=== PATIENT | female | born 1980 | race Caucasian/White ===

== ENCOUNTER 2023-01-29 08:52 | Emergency (ER) | payer MEDICAID, SELFPAY ==
[2023-01-29 08:54] VITALS: BP 162/87; PULSE 100; RESP 16; TEMP 37.2; O2SAT 99
--- NOTE | 2023-01-29 09:16 | DI.RAD_ITS ---
Exam(s) XR KNEE LT 3V AP,LAT,MILADY EXAM: XR KNEE LT 3V AP,LAT,MILADY CLINICAL HISTORY: Pain and swelling. TECHNIQUE: 2D digital imaging was performed. COMPARISON: No exams were available for comparison FINDINGS: 3 views No evidence of acute fracture nor joint space narrowing. However, there is a joint effusion signifyi ng internal derangement. Bone density normal. No osseous lesions. IMPRESSION: No acute osseous findings but there is a joint effusion signifying internal derangement of the knee. DATA REPOSITORY: RADIATION DOSE DELIVERED:
--- NOTE | 2023-01-29 09:18 | ED.GENADUL_ITS ---
Discharge Plan Disposition Patient Disposition: Home Discharge Details Clinical Impression: Injury of knee, left, Effusion of knee joint, left Primary Care Provider: None,None ED Provider: Humza Grant Home Meds and New Rx's Prescriptions: New diclofenac potassium 50 mg tablet 50 mg PO TID PRN (Reason: pain) Qty: 15 0RF Continued medroxyprogesterone [Depo-Provera] 150 mg/mL syringe 150 mg IM [id number] medroxyprogesterone [Depo-Provera] 150 mg/mL suspension 150 mg IM [id number] Held ibuprofen 200 mg tablet 200 mg PO Q6H PRN Hold Instructions: Until diclofenac is completed Discharge Instructions Instructions: Swollen Knee Joint (ED) Additional Instructions: You may continue to take acetaminophen along with the prescribed diclofenac. If you have any new or significant worsening of symptoms return the emergency department for reassessment otherwise continue follow-up with orthopedist. Please continue to wear the Fran wrap as this will help with your swelling and you may perform weightbearing as tolerated but crutch use over the next couple days may be beneficial. Referrals: [facility] [Provider Group] (Continue with your already prescribed appointment but call the office tomorrow to see if they may have any cancellations or you can be seen sooner.) Medical Decision Making Patient presenting to the emergency department for chief complaint of left knee injury. Patient reports that 3 weeks ago she was getting out of bed and when she turned she felt a pop and a sharp pain in her knee. Patient denies any other injury or trauma. Patient states that she has been using [id number] NSAIDs, hinged knee brace, and crutches but pain is not improving. She does state moderate swelling of the left knee but denies any fever chills, rash, redness or warmth. Physical exam shows moderate joint effusion to left knee with diffuse tenderness, no warmth or redness noted to the joint, patient can actively extend and flex the knee with patient reporting more pain with flexion. Ligamentous exam of the knee is completely unremarkable with no tenderness or laxity noted. Patient does states she was seen at an urgent care and they suspected meniscus type injury and she does have an upcoming appointment with orthopedist. Given that no radiological imaging has been performed we will perform radiological imaging. At this time I do not feel that risk outweigh benefit of draining her knee today so will place Fran wrap after imaging. Pending results we will give patient diclofenac and acetaminophen. Reviewed radiological imaging and radiologist interpretation that shows joint effusion with no fracture. Fran wrap placed on and patient encouraged to use crutches but that she could be weightbearing as tolerated. Will encourage patient to call orthopedic office to see if there is capacity to have her seen sooner. Of note patient did state moderate improvement after application of Fran wrap when she did get up and ambulate. After discussion of diagnosis and plan of care patient has no further needs, questions, or concerns and states clear understanding to return to the emergency department for any worsening symptoms. This documentation was generated using [employer] system, please disregard any oddities of phrase or misspellings. Imaging Data Radiologic Study: Attestation: I personally reviewed and interpreted this imaging study as follows: Imaging: X-Ray Radiologist's impression: Exam(s) PROCEDURE INFORMATION: Exam: XR Left Knee Exam date and time: 01/29/2023 9:48 AM Age: 42 years old Clinical indication: Other: Pain and swelling TECHNIQUE: Imaging protocol: Radiologic exam of the left knee. Views: 3 views. COMPARISON: No relevant prior studies available. FINDINGS: Bones/joints: No fracture or traumatic malalignment. Joint spaces are preserved. Moderate suprapatellar joint effusion. Soft tissues: Normal. IMPRESSION: Joint effusion without acute fracture. HPI General Mode of arrival: ambulatory (With crutches) . Date/Time Provider Initiated Documentation: 01/29/23 08:59 . Limitations to Documentation: no limitations . Information obtained by: patient and RN notes reviewed . History of Present Illness 42 year old F presents to the emergency department with the chief complaint of Left knee injury, described as moderate, Quality is described as aching, and is localized to the left and lower extremity. Patient reports no radiation. Patient started experiencing this week(s) (3) and it has been constant. Immobilization improves symptom(s), Movement worsens symptoms . Patient notes no other symptoms.. Patient did receive the following treatments prior to arrival, NSAID Related Data Home Medications Medication Instructions Recorded Confirmed medroxyprogesterone 150 mg/mL 150 mg IM [id number] 03/26/01/29/23 intramuscular syringe (Depo-Provera) ibuprofen 200 mg tablet 200 mg PO Q6H PRN 01/25/23 01/29/23 medroxyprogesterone 150 mg/mL 150 mg IM [id number] 01/25/23 01/29/23 intramuscular suspension (Depo-Provera) diclofenac potassium 50 mg tablet 50 mg PO TID PRN pain #15 tabs 01/29/23 Previous Rx's Medication Instructions Recorded diclofenac potassium 50 mg tablet 50 mg PO TID PRN pain #15 tabs 01/29/23 Allergies Allergy/AdvReac Type Severity Reaction Status Date / Time erythromycin Allergy Unknown Uncoded 01/29/23 09:04 General Stated Complaint: Orthopedic JT: 4 Review of Systems Constitutional Constitutional: Denies chills and Denies fever(s) Cardiovascular Cardiovascular: Denies chest pain and Denies dyspnea Respiratory Respiratory: Denies dyspnea Musculoskeletal Musculoskeletal: Reports as per HPI, Denies myalgias, Reports arthralgias, Reports joint swelling, Reports limited range of motion, Denies muscle weakness, Denies numbness and Denies tingling Integumentary/Breasts Skin/Breast: Denies erythema and Denies rash Neurologic Neurologic: Denies numbness and Denies tingling PFSH All Active Problems (Updated 01/29/23 @ 10:55 by Humza Grant NP) Injury of knee, left (Acute) Effusion of knee joint, left (Acute) Kidney disorder (Acute) Medical History Female pelvic pain H/O vaginitis History of heavy periods Incompetent cervix Surgical History History of knee surgery History of shoulder surgery 07/20/21 Previous section 2010 Social History Smoking/Tobacco Use Status: Current every day Tobacco Type: cigarettes Smoking risk assessment performed?: Yes Drug use: Occasionally Substance use type: marijuana Do you feel safe at home: Yes Do you feel safe in your relationship?: Yes Exam Const General: cooperative, no acute distress and not ill appearing Orientation: alert, awake and oriented x3 HENMT Mouth: moist mucous membranes Resp Effort & Inspection: normal respiratory effort, able to speak in complete sentences and no respiratory distress Cardio Rate: regular rate Rhythm: regular rhythm Pulses: normal peripheral pulses Skin General skin exam: no rashes or lesions noted Neuro General: patient alert, patient awake, patient oriented x3, moves all extremities and no focal motor deficits Extrem General: normal exam except as noted Right lower extremity: knee Details: tenderness (Diffuse), swelling (Effusion), abnormal ROM Details: pain with active ROM during Details: in flexion; able to extend lower leg actively and knee ligament exam normal; no lacerations and no ecchymosis Course Vital Signs Vital signs: Vital Signs Temperature 37.2 C 01/29/23 08:54 Pulse 100 H 01/29/23 08:54 Respiratory Rate 16 01/29/23 08:54 Blood Pressure 162/87 H 01/29/23 08:54 Pulse Oximetry 99 01/29/23 08:54 Temperature 37.2 C 01/29/23 08:54 Temperature Source Tympanic 01/29/23 08:54 Pulse 100 H 01/29/23 08:54 Respiratory Rate 16 01/29/23 08:54 Blood Pressure 162/87 H 01/29/23 08:54 Blood Pressure Position Sitting 01/29/23 08:54 Pulse Oximetry 99 01/29/23 08:54 Oxygen Delivery Method Room Air 01/29/23 08:54 Oxygen Flow Rate 0 01/29/23 08:54 Pain Level 8 01/29/23 08:54
[2023-01-29] MEDS: Acetaminophen 500 MG TAB PO (10:08)
--- NOTE | 2023-01-29 10:31 | DI.VRAD_ITS ---
PROCEDURE INFORMATION: Exam: XR Left Knee Exam date and time: 01/29/2023 9:48 AM Age: 42 years old Clinical indication: Other: Pain and swelling TECHNIQUE: Imaging protocol: Radiologic exam of the left knee. Views: 3 views. COMPARISON: No relevant prior studies available. FINDINGS: Bones/joints: No fracture or traumatic malalignment. Joint spaces are preserved. Moderate suprapatellar joint effusion. Soft tissues: Normal. IMPRESSION: Joint effusion without acute fracture. Dictated and Authenticated by: Mague Davis MD. Ordering:NYASIA Ching MD
== END 2023-01-29 11:15 | disposition home or self-care (01) ==
PROVIDERS: Emergency Provider Nurse Practitioner Family
DX: M25.462 Effusion, left knee (principal)
CPT/HCPCS: 73562; 99283